=== PATIENT | female | born 1995 | race American Indian/Alaskan Native ===

== ENCOUNTER 2017-07-09 21:19 | Emergency (ER) | payer SELFPAY ==
[2017-07-09 22:05] VITALS: TEMP 98.6; O2SAT 98; BMI 25.0
[2017-07-09] MEDS ORDERED: Sodium Chloride 0.9% 1,000 ML IV STA (22:57)
--- NOTE | 2017-07-09 23:15 | ED PDOC ---
Arrival/HPI - General Historian: Patient, Parent <Mushtaq Cristobal - Last Filed: 07/10/17 00:30> <Corona Fernando - Last Filed: 07/10/17 01:40> - General Chief Complaint: Shortness Of Breath Time Seen by Provider: 07/09/17 22:33 - History of Present Illness Narrative History of Present Illness (Text): 07/09/17 22:59 22 year old female, moved to [place] from [facility] ([place]) in March 2017, with no past medical history presents with SOB and lethargy. The patient states for the past week she has been feeling very drained of any energy and experiencing SOB with exertion. Patient reports that she can not walk up two stairs before she she experiences tightness in her chest and becomes sob. She denies any pain associated with SOB. Patient's mother reports that the daughter has not been eating or drinking well over the past week. The mother has needed to force her to eat a meal once a day. Patient reports she has not had anything to drink in the past couple of days. She is not eating or drinking because she is not hungry , not because she is nauseous or vomiting. Patient reports that she urinates about 10 times per day, although she states this is normal for her. Denies f/c, n/v, d/c, cp, lightheadedness, dizziness, numbness or tingling. LMP: 05/18/2017 PMH: none PSH: none Family: Mother-HTN Social: denies tobacco, alcohol and illicit drug use Allergies: NKDA (Mushtaq Cristobal) Past Medical History - Provider Review Nursing Documentation Reviewed: Yes - Infectious Disease Hx of Infectious Diseases: None - Psychiatric Hx Substance Use: No - Anesthesia Hx Anesthesia: No <Mushtaq Cristobal - Last Filed: 07/10/17 00:30> Family/Social History - Physician Review Nursing Documentation Reviewed: Yes Family/Social History: No Known Family HX Smoking Status: Never Smoked Hx Alcohol Use: No Hx Substance Use: No <Mushtaq Cristobal - Last Filed: 07/10/17 00:30> Allergies/Home Meds <Mushtaq Cristobal - Last Filed: 07/10/17 00:30> <Corona Fernando - Last Filed: 07/10/17 01:40> Allergies/Adverse Reactions: Allergies No Known Allergies Allergy (Verified 07/09/17 22:05) Home Medications: Home Meds Medication Instructions Recorded Confirmed No Known Home Med 07/09/17 07/09/17 Review of Systems - Physician Review All systems were reviewed & negative as marked: Yes - Review of Systems Constitutional: Fatigue. absent: Fevers Eyes: absent: Vision Changes ENT: absent: Sore Throat, Rhinorrhea, Sinus Congestion Respiratory: SOB. absent: Cough, Sputum, Wheezing Cardiovascular: absent: Chest Pain, Palpitations, Calf Pain, Syncope Gastrointestinal: Appetite Changes (decreased). absent: Abdominal Pain, Constipation, Diarrhea, Nausea, Vomiting, Food Intolerance Genitourinary Female: Normal, Frequency (10x a day). absent: Dysuria, Hematuria , Vaginal Bleeding (LMP 7/15), Vaginal Discharge Musculoskeletal: Normal Skin: Normal Neurological: Headache. absent: Dizziness, Focal Weakness Endocrine: absent: Diaphoresis Psychiatric: Normal <Mushtaq Cristobal - Last Filed: 07/10/17 00:30> Physical Exam Vital Signs Reviewed: Yes Temperature: Afebrile Blood Pressure: Normal Pulse: Regular Respiratory Rate: Normal Appearance: Positive for: Well-Appearing, Non-Toxic, Comfortable Pain Distress: None Mental Status: Positive for: Alert and Oriented X 3 - Systems Exam Head: Present: Atraumatic, Normocephalic Pupils: Present: PERRL Extroacular Muscles: Present: EOMI Conjunctiva: Present: Normal Mouth: Present: Moist Mucous Membranes, Normal Lips, Normal Tounge, Normal Teeth. No: Dry Pharnyx: Present: Normal. No: ERYTHEMA, EXUDATE, TONSILS ENLARGED, Uvular Deviation, Muffled/Hoarse Voice Nose (External): Present: Atraumatic. No: Abrasion Nose (Internal): Present: Normal Inspection, No Active Bleeding, Moist. No: Engorged, Edematous Neck: Present: Normal Range of Motion. No: Meningeal Signs, MIDLINE TENDERNESS , Paraspinal Tenderness, JVD, Lymphadenopathy Respiratory/Chest: Present: Clear to Auscultation. No: Respiratory Distress, Accessory Muscle Use, Wheezes, Rales, Rhonchi, Tachypneic Cardiovascular: Present: Regular Rate and Rhythm, Normal S1, S2 Abdomen: Present: Tenderness, Normal Bowel Sounds. No: Distention, Peritoneal Signs, Guarding, McBurney's Point Tender, Rovsing's Sign Present Upper Extremity: Present: Normal Inspection, NORMAL PULSES. No: Cyanosis, Edema , Normal ROM Lower Extremity: Present: Normal Inspection, NORMAL PULSES. No: Edema, CALF TENDERNESS Neurological: Present: GCS=15, Motor Func Grossly Intact Skin: Present: Warm, Dry, Normal Color Lymphatic: No: Cervical Adenopathy Psychiatric: Present: Alert, Oriented x 3, Normal Insight, Normal Concentration <Mushtaq Cristobal - Last Filed: 07/10/17 00:30> Medical Decision Making <Mushtaq Cristobal - Last Filed: 07/10/17 00:30> <Corona Fernando - Last Filed: 07/10/17 01:40> ED Course and Treatment: 07/09/17 23:18 SOB with exertion - EKG - NSR @ 75bpm, normal axis, normal ekg - CXR - no acute disease, unremarkable - CBC - unremarkable - CMP - unremarkable - UA - unremarkable - Patient was able to ambulate with no SOB. - Patient given Tylenol for headache and 1L bolus of NS DISPO: Home with no prescriptions. Patient is instructed to follow up with her primary care physician, Dr. Varghese. Please return to emergency department for new/worsening symptoms. (Mushtaq Cristobal) Patient seen and evaluated with resident. Agree with HPI, clinical findings, plan and treatment. Patient is a 22 year old female who presents to the emergency department complaining of shortness of breath and lethargy. EKG, Labs, CXR and Urinalysis unremarkable. Will discharge patient and advised to present to emergency department for new/worsening complaints. (Corona Fernando) - Lab Interpretations Lab Results: 07/09/17 23:35 07/09/17 23:35 Lab Results 07/09/17 23:35: Sodium 137, Potassium 4.1, Chloride 102, Carbon Dioxide 25, Anion Gap 14, BUN 10, Creatinine 0.7, Est GFR ( Amer) > 60, Est GFR (Non- Af Amer) > 60, Random Glucose 100, Calcium 9.3, Total Bilirubin 0.4, AST 25, ALT 31, Alkaline Phosphatase 67, Total Protein 7.7, Albumin 4.3, Globulin 3.4, Albumin/Globulin Ratio 1.3 07/09/17 23:35: Urine Color Straw, Urine Appearance Clear, Urine pH 6.5, Ur Specific [place] 1.010, Urine Protein Negative, Urine Glucose (UA) Negative, Urine Ketones Negative, Urine Blood Negative, Urine Nitrate Negative, Urine Bilirubin Negative, Urine Urobilinogen 0.2, Ur Leukocyte Esterase Negative 07/09/17 23:35: WBC 5.2, RBC 4.29, Hgb 13.1, Hct 37.2, MCV 86.7, MCH 30.5, MCHC 35.2, RDW 12.3, Plt Count 191, MPV 10.6, Gran % 43.1 L, Lymph % (Auto) 46.5 H, [place] % (Auto) 8.1 H, Eos % (Auto) 2.1, Baso % (Auto) 0.2, Gran # 2.24, Lymph # 2.4, [place] # 0.4, Eos # 0.1, Baso # 0.01 - RAD Interpretation Radiology Orders: 07/09/17 22:56 CHEST PORTABLE [RAD] Stat - Medication Orders Current Medication Orders: Discontinued Medications Acetaminophen (Tylenol 325mg Tab) 650 mg PO STAT STA Stop: 07/10/17 00:16 Last Admin: 07/10/17 00:50 Dose: Sodium Chloride (Sodium Chloride 0.9%) 1,000 mls @ 999 mls/hr IV .Q1H1M STA Stop: 07/09/17 23:57 Last Admin: 07/09/17 23:59 Dose: 999 mls/hr - PA / SKIN INSTALLER / Resident Statement MARY has reviewed & agrees with the documentation as recorded. MARY has examined the patient and agrees with the treatment plan. <Corona Fernando - Last Filed: 07/10/17 01:40> Disposition/Present on Arrival - Present on Arrival Any Indicators Present on Arrival: No History of DVT/PE: No History of Uncontrolled Diabetes: No Urinary Catheter: No History of Decub. Ulcer: No History Surgical Site Infection Following: None - Disposition Have Diagnosis and Disposition been Completed?: Yes Disposition Time: 00:30 Patient Plan: Discharge <Mushtaq Cristobal - Last Filed: 07/10/17 00:30> <Corona Fernando - Last Filed: 07/10/17 01:40> - Disposition Diagnosis: Headache Disposition: HOME/ ROUTINE Condition: GOOD Discharge Instructions (ExitCare): Acute Headache (ED) Referrals: PCP,NO [Primary Care Provider] - Follow up with primary Forms: [employer] ([place])
[2017-07-09 23:58] LABS: BASO # 0.01 K/mm3 (0.0-2.0); BASO % 0.2 % (0.0-3.0); EOS # 0.1 (0.0-0.7); EOS % 2.1 % (1.5-5.0); GRAN # 2.24 (1.4-6.5); GRAN % 43.1 % (50.0-68.0); HEMATOCRIT 37.2 % (36.0-48.0); LYMPH # 2.4 (1.2-3.4); LYMPH % 46.5 % (22.0-35.0); MEAN CELL VOLUME 86.7 fl (80.0-105.0); MEAN CORPUSCULAR HEMOGLOBIN 30.5 pg (25.0-35.0); MEAN CORPUSCULAR HGB CONC 35.2 g/dl (31.0-37.0); MEAN PLATELET VOLUME 10.6 fl (7.0-11.0); MONO # 0.4 (0.1-0.6); MONO % 8.1 % (1.0-6.0); RED CELL DISTRIBUTION WIDTH 12.3 % (11.5-14.5); WHITE BLOOD COUNT 5.2 10^3/ul (4.5-11.0)
[2017-07-10 00:02] LABS: PH,URINE 6.5 (4.7-8.0); URINE BILIRUBIN NEGATIVE (NEGATIVE); URINE BLOOD NEGATIVE (NEGATIVE); URINE GLUCOSE (UA) NEGATIVE (NEGATIVE); URINE KETONE NEGATIVE (NEGATIVE); URINE LEUKOCYTE ESTERASE NEGATIVE Leu/uL (NEGATIVE); URINE PROTEIN NEGATIVE mg/dL (<30 mg/dL); URINE UROBILINOGEN 0.2 E.U./dL (<1 E.U./dL)
[2017-07-10 00:08] LABS: URINE APPEARANCE CLEAR (CLEAR); URINE COLOR STRAW (YELLOW)
[2017-07-10 00:09] LABS: ALB/GLOB RATIO 1.3 (1.1-1.8); ALKALINE PHOSPHATASE 67 U/L (38-126); ALT/SGPT 31 U/L (7-56); AST/SGOT 25 U/L (14-36); BILIRUBIN,TOTAL 0.4 mg/dL (0.2-1.3); BLOOD UREA NITROGEN 10 mg/dL (7-21); CALCIUM 9.3 mg/dL (8.4-10.5); CARBON DIOXIDE 25 mmol/L (21-33); CHLORIDE 102 mmol/L (95-110); GFR AFRICAN-AMERICAN > 60; GLUCOSE,RANDOM 100 mg/dL (70-110); POTASSIUM 4.1 mmol/L (3.6-5.0); SODIUM 137 mmol/L (132-148); TOTAL PROTEIN 7.7 g/dL (5.8-8.3)
[2017-07-10 00:52] VITALS: BP 112/72; PULSE 85; RESP 17
--- NOTE | 2017-07-10 09:24 | RAD ---
HISTORY: sob COMPARISON: No prior. FINDINGS: LUNGS: No active pulmonary disease. PLEURA: No significant pleural effusion identified, no pneumothorax apparent. CARDIOVASCULAR: Normal. OSSEOUS STRUCTURES: No significant abnormalities. VISUALIZED UPPER ABDOMEN: Normal. OTHER FINDINGS: None. IMPRESSION: No active disease.
--- NOTE | 2017-07-10 17:53 | CARD ---
APPROVED REPORT EKG Measurement Heart [id number] <Conclusion> Normal sinus rhythm Normal ECG
== END 2017-07-10 00:45 | disposition home or self-care (01) ==
LOC: ED 21:19
DX: R51 Headache (principal)
CPT/HCPCS: 71010; 80053; 81003; 82948; 85025; 93005; 96360; 99284; J7040

== ENCOUNTER 2018-06-07 00:45 | Emergency (ER) | payer SELFPAY ==
[2018-06-07 00:51] VITALS: BMI 30.9
[2018-06-07] MEDS ORDERED: Sodium Chloride 0.9% 1,000 ML IV STA (01:01)
[2018-06-07 01:03] VITALS: TEMP 98.3
--- NOTE | 2018-06-07 01:11 | ED PDOC ---
Arrival/HPI - General Chief Complaint: Abdominal Pain Time Seen by Provider: 06/07/18 00:48 Historian: Patient - History of Present Illness Narrative History of Present Illness (Text): 06/07/18 01:06 A 23 year old femal with no significant past medical history presents to the emergency department complaining of lower abdominal pain since 3 days ago. Patient reports her LNMP was 4 days ago and denies any fever, chills, chest pain , shortness of breath, nausea, vomiting, diarrhea,vaginal bleeding, back pain, neck pain, headache, dizziness, or any other complaints. No PMD Time/Duration: Other (3 days ) Symptom Onset: Gradual Symptom Course: Unchanged Context: Home Past Medical History - Provider Review Nursing Documentation Reviewed: Yes - Infectious Disease Hx of Infectious Diseases: None - Psychiatric Hx Psychophysiologic Disorder: No Hx Substance Use: No - Surgical History Hx Appendectomy: Yes - Anesthesia Hx Anesthesia: Yes Hx Anesthesia Reactions: No Family/Social History - Physician Review Nursing Documentation Reviewed: Yes Family/Social History: Unknown Family HX Smoking Status: Never Smoked Hx Alcohol Use: No Hx Substance Use: No Allergies/Home Meds Allergies/Adverse Reactions: Allergies No Known Allergies Allergy (Verified 06/07/18 00:51) Review of Systems - Physician Review All systems were reviewed & negative as marked: Yes - Review of Systems Constitutional: Normal. absent: Fevers, Night Sweats Eyes: Normal Respiratory: Normal. absent: SOB Cardiovascular: Normal. absent: Chest Pain Gastrointestinal: absent: Diarrhea, Nausea, Vomiting Genitourinary Female: Other (pain in lower abdomen). absent: Vaginal Bleeding Musculoskeletal: absent: Back Pain, Neck Pain Neurological: absent: Headache, Dizziness Physical Exam Vital Signs Reviewed: Yes Vital Signs Temp Pulse Resp BP Pulse Ox 06/07/18 01:02 98.3 F 06/07/18 00:54 85 16 105/48 L 98 Temperature: Afebrile Blood Pressure: Hypotensive Pulse: Regular Respiratory Rate: Normal Appearance: Positive for: Well-Appearing, Non-Toxic, Comfortable Pain Distress: None Mental Status: Positive for: Alert and Oriented X 3 - Systems Exam Head: Present: Atraumatic, Normocephalic Pupils: Present: PERRL Extroacular Muscles: Present: EOMI Conjunctiva: Present: Normal Mouth: Present: Moist Mucous Membranes Neck: Present: Normal Range of Motion Respiratory/Chest: Present: Clear to Auscultation, Good Air Exchange. No: Respiratory Distress, Accessory Muscle Use Cardiovascular: Present: Regular Rate and Rhythm, Normal S1, S2. No: Murmurs Abdomen: No: Tenderness, Distention, Peritoneal Signs Genitourinary/Pelvic Exam: Present: Adenexal Tenderness (super pubic and left pelvic adenexal). No: Vaginal Bleeding Back: Present: Normal Inspection Upper Extremity: Present: Normal Inspection. No: Cyanosis, Edema Lower Extremity: Present: Normal Inspection. No: Edema Neurological: Present: GCS=15, CN II-XII Intact, Speech Normal Skin: Present: Warm, Dry, Normal Color. No: Rashes Psychiatric: Present: Alert, Oriented x 3, Normal Insight, Normal Concentration Medical Decision Making ED Course and Treatment: 06/07/18 01:16 Impression: 23 year old female presenting to the Emergency department complaining of lower abdominal pain. r/o ovarian cyst colitis uti. labs imagign pendign Differential Diagnosis included but are not limited to: Plan: -- Labs -- Tylenol -- IV Fluids -- HCG, Qualitative Urine Stat -- Urinalysis -- Transvaginal Ultrasound -- Reassess and disposition Prior Visits: Notes and results from previous visits were reviewed. Progress Notes: 06/07/18 02:56 EXAM: US Pelvis, Transvaginal US Duplex Arterial/Venous of the Pelvis, Complete FINDINGS: Uterus/cervix: The endometrial stripe measures 11 mm. No myometrial mass. Right ovary: There is right ovarian simple cystic sonolucent mass measuring 2.1 x 2.0 x 2.4 cm with the smaller cystic area The beta-hCG is negative and is confirmed with the clinical staff taking care of the patient in the emergency room. The right ovary measures 3.9 x 2.6 x 3.1 cm. Duplex assessment demonstrates presence of color Doppler signal and spectral Doppler waveform in right ovary. No torsion. Left ovary: The left ovary measures 2.9 x 2.9 x 2.3 cm. Duplex assessment demonstrates presence of color Doppler signal and spectral Doppler waveform in left ovary. No torsion. Free fluid: Trace free pelvic fluid. Other findings: No IUP. CRITICAL RESULT: The study was personally discussed on the telephone with Rodrigue Mg on 06/07/20182:18 AM EDTThe results were understood and acknowledged. IMPRESSION: 1. There is right ovarian simple cystic sonolucent mass measuring 2.1 x 2.0 x 2.4 cm with the smaller cystic area . The beta-hCG is negative and is confirmed with the clinical staff taking care of the patient in the emergency room. 2. Trace free pelvic fluid. Dictated and Authenticated by: Guera Correa MD 06/07/18 04:01 EXAM: CT Abdomen and Pelvis With Intravenous Contrast FINDINGS: Lung bases: Unremarkable. No mass. No consolidation. ABDOMEN: Liver: The liver is unremarkable. Gallbladder and bile ducts: The gallbladder is unremarkable. No biliary ductal dilatation. Pancreas: The pancreas is unremarkable. Spleen: The spleen is unremarkable. Adrenals: The adrenal glands are unremarkable. Kidneys and ureters: Symmetric renal enhancement without hydronephrosis. Stomach and bowel: No evidence of bowel obstruction. No pericolonic inflammatory stranding. PELVIS: Appendix: Appendix is not seen but there is no pericecal inflammatory change to suggest appendicitis. Bladder: No focal wall thickening of the urinary bladder. Reproductive: 2 cm right adnexal cyst. Uterus is unremarkable. No suspicious adnexal lesion seen. ABDOMEN and PELVIS: Intraperitoneal space: Trace pelvic free fluid. No abscess or free air. Bones/joints: No acute osseous abnormality. Soft tissues: No soft tissue swelling. Vasculature: Unremarkable. No abdominal aortic aneurysm. Lymph nodes: No enlarged lymph nodes. IMPRESSION: No acute findings. Dictated and Authenticated by: Ruperto Nunn MD 06/07/18 04:08 pt reassessed pain improved. ct neg. us shows cyst. flow documents. labs neg. advise outpt fu. - Lab Interpretations Lab Results: 06/07/18 01:00 06/07/18 01:00 Lab Results 06/07/18 01:20: Urine HCG, Qual Negative 06/07/18 01:20: Urine Color Light yellow, Urine Appearance Clear, Urine pH 6.5, Ur Specific [place] <= 1.005, Urine Protein Negative, Urine Glucose (UA) Negative, Urine Ketones Negative, Urine Blood Negative, Urine Nitrate Negative, Urine Bilirubin Negative, Urine Urobilinogen 0.2, Ur Leukocyte Esterase Negative 06/07/18 01:00: Beta HCG, Quant < 2.39 06/07/18 01:00: Sodium 140, Potassium 4.1, Chloride 103, Carbon Dioxide 25, Anion Gap 16, BUN 11, Creatinine 0.7, Est GFR ( Amer) > 60, Est GFR (Non- Af Amer) > 60, Random Glucose 103, Calcium 9.0, Magnesium 1.9, Total Bilirubin 0.2, Direct Bilirubin 0.2, AST 15, ALT 18, Alkaline Phosphatase 76, Total Protein 7.7, Albumin 4.3, Globulin 3.4, Albumin/Globulin Ratio 1.2, Lipase 130 06/07/18 01:00: PT 11.5, INR 1.01, APTT 28.6 06/07/18 01:00: WBC 5.9, RBC 4.21, Hgb 12.6, Hct 35.7 L, MCV 84.8, MCH 29.9, MCHC 35.3, RDW 12.4, Plt Count 197, MPV 10.7, Gran % 42.1 L, Lymph % (Auto) 45.2 H, [place] % (Auto) 10.5 H, Eos % (Auto) 1.9, Baso % (Auto) 0.3, Gran # 2.49, Lymph # (Auto) 2.7, [place] # (Auto) 0.6, Eos # (Auto) 0.1, Baso # (Auto) 0.02 - RAD Interpretation Radiology Orders: 06/07/18 01:02 TRANSVAGINAL [US] Stat 06/07/18 02:27 ABD & PELVIS IV CONTRAST ONLY [CT] Stat - Medication Orders Current Medication Orders: Discontinued Medications Acetaminophen (Tylenol 325mg Tab) 975 mg PO STAT STA Stop: 06/07/18 01:03 Last Admin: 06/07/18 01:15 Dose: 975 mg Sodium Chloride (Sodium Chloride 0.9%) 1,000 mls @ 1,000 mls/hr IV .Q1H STA Stop: 06/07/18 02:00 Last Admin: 06/07/18 01:15 Dose: 1,000 mls/hr eMAR Start Stop Document 06/07/18 01:15 AD (Rec: 06/07/18 01:28 AD [id number]) Intravenous Solution Start Date 06/07/18 Start Time 01:27 - Scribe Statement The provider has reviewed the documentation as recorded by the Marcos Nunn All medical record entries made by the Scribe were at my direction and personally dictated by me. I have reviewed the chart and agree that the record accurately reflects my personal performance of the history, physical exam, medical decision making, and the department course for this patient. I have also personally directed, reviewed, and agree with the discharge instructions and disposition. Disposition/Present on Arrival - Present on Arrival Any Indicators Present on Arrival: No History of DVT/PE: No History of Uncontrolled Diabetes: No Urinary Catheter: No History of Decub. Ulcer: No History Surgical Site Infection Following: None - Disposition Have Diagnosis and Disposition been Completed?: Yes Diagnosis: Abdominal pain, Ovarian cyst Disposition: HOME/ ROUTINE Disposition Time: 01:00 Patient Problems: Current Active Problems Problem Status Onset Abdominal pain Acute Condition: STABLE Discharge Instructions (ExitCare): Ovarian Cysts, Acute Abdomen (Belly Pain), Adult (DC) Additional Instructions: please follow up with your doctor. return to er with worsening symptoms or concerns. please see obgyn. Prescriptions: Naproxen 500 mg PO BID PRN #14 tablet PRN Reason: Pain, Mild (1-3) Referrals: Oli Mcnamara DO [Staff Provider] - Follow up with primary Yobani Borges MD [Staff Provider] - Follow up with primary Forms: [facility] (French)
[2018-06-07 01:21] LABS: BASO # 0.02 K/mm3 (0.0-2.0); BASO % 0.3 % (0.0-3.0); EOS # 0.1 (0.0-0.7); EOS % 1.9 % (1.5-5.0); GRAN # 2.49 (1.4-6.5); GRAN % 42.1 % (50.0-68.0); HEMOGLOBIN 12.6 g/dL (12.0-16.0); LYMPH # 2.7 (1.2-3.4); LYMPH % 45.2 % (22.0-35.0); MEAN CELL VOLUME 84.8 fl (80.0-105.0); MEAN CORPUSCULAR HEMOGLOBIN 29.9 pg (25.0-35.0); MEAN CORPUSCULAR HGB CONC 35.3 g/dl (31.0-37.0); MEAN PLATELET VOLUME 10.7 fl (7.0-11.0); MONO # 0.6 (0.1-0.6); MONO % 10.5 % (1.0-6.0); RBC 4.21 10^6/uL (3.5-6.1); RED CELL DISTRIBUTION WIDTH 12.4 % (11.5-14.5); WHITE BLOOD COUNT 5.9 10^3/ul (4.5-11.0)
[2018-06-07 01:39] LABS: INR 1.01; PROTHROMBIN TIME 11.5 SECONDS (9.4-12.5)
[2018-06-07 01:41] LABS: PARTIAL THROMBOPLASTIN TIME 28.6 Seconds (25.1-36.5)
[2018-06-07 01:49] LABS: ALB/GLOB RATIO 1.2 (1.1-1.8); ALBUMIN 4.3 g/dL (3.0-4.8); ALT/SGPT 18 U/L (7-56); AST/SGOT 15 U/L (14-36); BILIRUBIN,DIRECT 0.2 mg/dL (0.0-0.4); BLOOD UREA NITROGEN 11 mg/dL (7-21); GFR AFRICAN-AMERICAN > 60; GFR NON-AFRICAN AMERICAN > 60; LIPASE 130 U/L (23-300)
[2018-06-07 01:57] LABS: PH,URINE 6.5 (4.7-8.0); URINE BILIRUBIN NEGATIVE (NEGATIVE); URINE BLOOD NEGATIVE (NEGATIVE); URINE GLUCOSE (UA) NEGATIVE (NEGATIVE); URINE LEUKOCYTE ESTERASE NEGATIVE Leu/uL (NEGATIVE); URINE PROTEIN NEGATIVE mg/dL (<30 mg/dL); URINE UROBILINOGEN 0.2 E.U./dL (<1 E.U./dL)
[2018-06-07 02:06] LABS: URINE APPEARANCE CLEAR (CLEAR); URINE COLOR LIGHT YELLOW (YELLOW)
[2018-06-07] MEDS ORDERED: Iohexol 350 MG/100 ML VIAL ONE (02:47)
[2018-06-07 04:53] VITALS: BP 110/52; PULSE 75; RESP 18; O2SAT 100
--- NOTE | 2018-06-07 09:10 | CT ---
Date of service: 06/07/2018 PROCEDURE: CT Abdomen and Pelvis with contrast HISTORY: diffuse abd pain COMPARISON: None. TECHNIQUE: Contrast dose: 100 cc of Omnipaque 300 Radiation dose: Total exam DLP = 569 mGy-cm. This CT exam was performed using one or more of the following dose reduction techniques: Automated exposure control, adjustment of the mA and/or kV according to patient size, and/or use of iterative reconstruction technique. FINDINGS: LOWER THORAX: Unremarkable. LIVER: Unremarkable. No gross lesion or ductal dilatation. GALLBLADDER AND BILE DUCTS: Unremarkable. PANCREAS: Unremarkable. No gross lesion or ductal dilatation. SPLEEN: Unremarkable. ADRENALS: Unremarkable. No mass. KIDNEYS AND URETERS: Unremarkable. No hydronephrosis. No solid mass. VASCULATURE: Unremarkable. No aortic aneurysm. BOWEL: Unremarkable. No obstruction. No gross mural thickening. APPENDIX: Normal appendix. PERITONEUM: Unremarkable. No free fluid. No free air. LYMPH NODES: Unremarkable. No enlarged lymph nodes. BLADDER: Unremarkable. REPRODUCTIVE: Right-sided ovarian cyst BONES: No acute fracture. OTHER FINDINGS: The report concurs with the preliminary [facility] report IMPRESSION: No acute intra-abdominal findings
--- NOTE | 2018-06-07 14:31 | US ---
Date of service: 06/07/2018 HISTORY: pelvic pain COMPARISON: None available. TECHNIQUE: Transvaginal FINDINGS: UTERUS: Measures 7.9 x 4.3 x 5.4 cm. Normal in size and appearance. No fibroid or other mass lesion seen. ENDOMETRIUM: Measures 11 mm in diameter. Unremarkable. CERVIX: No cervical abnormality identified. RIGHT OVARY: There is a simple cyst in the right ovary measuring 2.1 x 2.0 x 2.4 cm. There is a smaller cyst within the cyst. This has the appearance similar to a yolk sac. However the beta-hCG E is reported as negative which rules out ectopic. The right ovary measures 3.9 x 2.6 x 3.1 cm LEFT OVARY: Left ovary measures 2.9 x 2.9 x 2.3 cm FREE FLUID: Trace amount of free fluid OTHER FINDINGS: The study was initially interpreted by the [facility] radiologists in the results were discussed with Dr. Mg at 2:18 a.m. Eastern time IMPRESSION: Complex cyst in the right ovary. No evidence of intrauterine . Beta-hCG is reported as negative which rules out ectopic
== END 2018-06-07 04:00 | disposition home or self-care (01) ==
LOC: ED 00:45
DX: N83.201 Unspecified ovarian cyst, right side (principal); R10.30 Lower abdominal pain, unspecified
CPT/HCPCS: 74177; 76830; 80053; 81003; 82248; 83690; 83735; 84702; 84703; 85025; 85610; 85730; 99283; J7030; Q9967

== ENCOUNTER 2019-03-03 18:55 | Emergency (ER) | payer SELFPAY ==
[2019-03-03 18:57] VITALS: BMI 30.9
[2019-03-03 19:29] VITALS: RESP 18; TEMP 97.8
--- NOTE | 2019-03-03 19:35 | ED PDOC ---
Arrival/HPI <Corona Fernando - Last Filed: 03/04/19 23:18> - General Historian: Patient - History of Present Illness Narrative History of Present Illness (Text): 03/03/19 21:29 24 y/o female with PMH of ovarian cysts presents to the ED c/o abdominal pain x 2 weeks. Associated intermittent lightheadedness, headache, constipation. Also has been experiencing palpitations intermittently that she describes as a "fast heart beat". Yesterday, pt had a nose bleed from the left nare that stopped after about 5 minutes without intervention. Pt has a history of nosebleeds as a child that resolved after a polyp removal surgery [place]. Pt does not have ENT followup here in the [place]. No epistaxis currently. Admits to not drinking much water throughout the day. Last BM yesterday afternoon, small amount of hard stool. Tolerating PO per baseline. Denies fever, chills, cough, chest pain, SOB, syncope, diarrhea, vision changes, neck pain/stiffness, nausea, vomiting, numbness, weakness, paresthesias, back pain, or any other associated symptoms. <Sarika Trivedi - Last Filed: 03/05/19 16:08> - General Chief Complaint: Abdominal Pain Time Seen by Provider: 03/03/19 18:58 Past Medical History - Provider Review Nursing Documentation Reviewed: Yes - Infectious Disease Hx of Infectious Diseases: None - Psychiatric Hx Psychophysiologic Disorder: No Hx Substance Use: No - Surgical History Hx Appendectomy: Yes - Anesthesia Hx Anesthesia: Yes Hx Anesthesia Reactions: No Hx Malignant Hyperthermia: No <Sarika Trivedi - Last Filed: 03/05/19 16:08> Family/Social History - Physician Review Nursing Documentation Reviewed: Yes Family/Social History: No Known Family HX Smoking Status: Never Smoked Hx Alcohol Use: No Hx Substance Use: No <Sarika Trivedi - Last Filed: 03/05/19 16:08> Allergies/Home Meds <Corona Fernando - Last Filed: 03/04/19 23:18> <Sarika Trivedi - Last Filed: 03/05/19 16:08> Allergies/Adverse Reactions: Allergies No Known Allergies Allergy (Verified 06/07/18 00:51) Review of Systems - Physician Review All systems were reviewed & negative as marked: Yes - Review of Systems Constitutional: Normal. absent: Fevers Eyes: Normal. absent: Vision Changes, Eye Pain ENT: Epistaxis. absent: Sore Throat, Sinus Congestion Respiratory: Normal. absent: SOB, Cough Cardiovascular: Normal. absent: Chest Pain, Palpitations, Syncope Gastrointestinal: Abdominal Pain. absent: Nausea, Vomiting Genitourinary Female: Normal. absent: Dysuria, Frequency Musculoskeletal: Normal. absent: Back Pain, Neck Pain Skin: Normal. absent: Rash Neurological: Headache, Dizziness <Sarika Trivedi - Last Filed: 03/05/19 16:08> Physical Exam Vital Signs Temp Pulse Resp BP Pulse Ox 03/03/19 18:57 97.8 F 81 18 105/76 98 <Corona Fernando - Last Filed: 03/04/19 23:18> Vital Signs Reviewed: Yes Vital Signs Temp Pulse Resp BP Pulse Ox 03/03/19 18:57 97.8 F 81 18 105/76 98 Temperature: Afebrile Blood Pressure: Normal Pulse: Regular Respiratory Rate: Normal Appearance: Positive for: Well-Appearing, Non-Toxic, Comfortable Pain Distress: None Mental Status: Positive for: Alert and Oriented X 3 - Systems Exam Head: Present: Atraumatic, Normocephalic Pupils: Present: PERRL Extroacular Muscles: Present: EOMI Conjunctiva: Present: Normal Ears: Present: Normal, NORMAL TM, Normal Canal Mouth: Present: Moist Mucous Membranes Pharnyx: Present: Normal. No: ERYTHEMA, EXUDATE, TONSILS ENLARGED Nose (External): Present: Atraumatic Nose (Internal): Present: Normal Inspection, No Active Bleeding, Moist Neck: Present: Normal Range of Motion. No: Meningeal Signs Respiratory/Chest: Present: Clear to Auscultation, Good Air Exchange. No: Respiratory Distress, Accessory Muscle Use Cardiovascular: Present: Regular Rate and Rhythm, Normal S1, S2, Peripheal Pulses Present. No: Other (no focal RLQ tenderness) Abdomen: Present: Tenderness (generalized, worst periumbilical ), Normal Bowel Sounds. No: Distention, Peritoneal Signs, Rebound, Guarding Back: Present: Normal Inspection. No: CVA Tenderness Upper Extremity: Present: Normal Inspection, Normal ROM, NORMAL PULSES, Neurovascularly Intact, Capillary Refill < 2s. No: Cyanosis, Edema, Temperature Abnormalties Lower Extremity: Present: Normal Inspection, NORMAL PULSES, Normal ROM, Neurovascularly Intact, Capillary Refill < 2 s. No: Edema, Temperature Abnormalties Neurological: Present: GCS=15, CN II-XII Intact, Speech Normal, Motor Func Grossly Intact, Normal Sensory Function, Gait Normal Skin: Present: Warm, Dry, Normal Color. No: Rashes Psychiatric: Present: Alert, Oriented x 3, Normal Insight, Normal Concentration, Normal Affect, Normal Mood <Sarika Trivedi - Last Filed: 03/05/19 16:08> Medical Decision Making - Lab Interpretations Lab Results: PT 11.6 SECONDS (9.4-12.5) 03/03/19 19:45 INR 1.05 03/03/19 19:45 APTT 29.1 Seconds (26.9-38.3) 03/03/19 19:45 Troponin I < 0.01 ng/mL 03/03/19 19:45 Total Bilirubin 0.2 mg/dL (0.2-1.3) 03/03/19 19:45 AST 21 U/L (14-36) 03/03/19 19:45 ALT 17 U/L (7-56) 03/03/19 19:45 Alkaline Phosphatase 74 U/L (38-126) 03/03/19 19:45 Total Protein 7.4 g/dL (5.8-8.3) 03/03/19 19:45 Albumin 4.1 g/dL (3.0-4.8) 03/03/19 19:45 Globulin 3.3 gm/dL 03/03/19 19:45 Albumin/Globulin Ratio 1.2 (1.1-1.8) 03/03/19 19:45 Lipase 113 U/L (23-300) 03/03/19 19:45 Urine Color Yellow (YELLOW) 03/03/19 19:45 Urine Appearance Clear (CLEAR) 03/03/19 19:45 Urine pH 7.5 (4.7-8.0) 03/03/19 19:45 Ur Specific [place] 1.015 (1.005-1.035) 03/03/19 19:45 Urine Protein Negative mg/dL (<30 mg/dL) 03/03/19 19:45 Urine Glucose (UA) Negative mg/dL (NEGATIVE) 03/03/19 19:45 Urine Ketones Negative mg/dL (NEGATIVE) 03/03/19 19:45 Urine Blood Negative (NEGATIVE) 03/03/19 19:45 Urine Nitrate Negative (NEGATIVE) 03/03/19 19:45 Urine Bilirubin Negative (NEGATIVE) 03/03/19 19:45 Urine Urobilinogen 0.2 E.U./dL (<1 E.U./dL) 03/03/19 19:45 Ur Leukocyte Esterase Negative Arnol/uL (NEGATIVE) 03/03/19 19:45 - RAD Interpretation Radiology Orders: 03/03/19 19:36 ABD & PELVIS IV CONTRAST ONLY [CT] Stat 03/03/19 19:41 HEAD W/O CONTRAST [CT] Stat - Medication Orders Current Medication Orders: Discontinued Medications Acetaminophen (Tylenol 325mg Tab) 650 mg PO STAT STA Stop: 03/03/19 20:32 Last Admin: 03/03/19 20:57 Dose: 650 mg MAR Pain/Vitals Document 03/03/19 20:57 RG (Rec: 03/03/19 20:57 RG [id number]) Location Left, Right or Bilateral Left Upper or Lower Lower Pain Location Body Site Abdomen Pain Behavior Rubbing Site Sodium Chloride (Sodium Chloride 0.9%) 1,000 mls @ 999 mls/hr IV .Q1H1M STA Stop: 03/03/19 20:39 Last Admin: 03/03/19 19:50 Dose: 999 mls/hr eMAR Start Stop Document 03/03/19 19:50 RG (Rec: 03/03/19 19:50 RG [id number]) Intravenous Solution Start Date 03/03/19 Start Time 19:50 <Corona Fernando - Last Filed: 03/04/19 23:18> ED Course and Treatment: Initial Plan: * CBC, CMP * Coags * Troponin * Mg, Phos * Thyroid Studies * Lipase * UA * EKG * CXR * CT Head * CT Abd/Pelvis * Orthostatics * IVF * Tylenol On initial exam, patient is very well appearing in no acute distress. No focal neurological deficits or ataxia. No respiratory distress. No tachycardia. No epistaxis. Abdomen soft, mild generalized tenderness. Bloodwork and urine reviewed, unremarkable CXR shows no active disease CT head negative CT Abd/Pelvis shows mesenteric adenitis. Advised supportive care. EKG shows normal rate and rhythm, no ischemic changes or heart block. On reevaluation, patient continues to be well appearing. Resting comfortably in stretcher with stable vital signs. Reports complete resolution of symptoms with medications. Comfortable with discharge home. Advised PMD, cardiology, ENT, and GI followup. Diagnostic testing results and plan of care discussed with patient. Strict instructions given regarding prescription use, importance of followup, and signs/symptoms to return to ER including chest pain, SOB, intractable vomiting, syncope, or any other new/worsening symptoms. Pt verbalized understanding of discussion. Patient is A&Ox3, ambulating with steady gait, with vital signs stable for discharge. - Lab Interpretations Lab Results: 03/03/19 19:45 03/03/19 19:45 Lab Results 03/03/19 19:45: Free T4 1.06, TSH 3rd Generation 1.27 03/03/19 19:45: Sodium 139, Potassium 4.1, Chloride 103, Carbon Dioxide 28, Anion Gap 12, BUN 11, Creatinine 0.6 L, Est GFR ( Amer) > 60, Est GFR (Non-Af Amer) > 60, Random Glucose 91, Calcium 9.0, Magnesium 2.0, Total Bilirubin 0.2, AST 21, ALT 17, Alkaline Phosphatase 74, Troponin I < 0.01, Total Protein 7.4, Albumin 4.1, Globulin 3.3, Albumin/Globulin Ratio 1.2, Lipase 113 03/03/19 19:45: Urine Color Yellow, Urine Appearance Clear, Urine pH 7.5, Ur Specific [place] 1.015, Urine Protein Negative, Urine Glucose (UA) Negative, Urine Ketones Negative, Urine Blood Negative, Urine Nitrate Negative, Urine Bilirubin Negative, Urine Urobilinogen 0.2, Ur Leukocyte Esterase Negative 03/03/19 19:45: PT 11.6, INR 1.05, APTT 29.1 03/03/19 19:45: WBC 5.1, RBC 4.25, Hgb 12.7, Hct 36.7, MCV 86.4, MCH 29.9, MCHC 34.6, RDW 12.1, Plt Count 223, MPV 10.4, Neut % (Auto) 37.5 L, Lymph % (Auto) 49.2 H, [place] % (Auto) 10.5 H, Eos % (Auto) 2.4, Baso % (Auto) 0.4, Lymph # (Auto) 2.5, [place] # (Auto) 0.5, Eos # (Auto) 0.1, Baso # (Auto) 0.02, Absolute Neuts (auto) 1.90 03/03/19 19:29: POC Glucose (mg/dL) 116 H I have reviewed the lab results: Yes Interpretation: All labs normal - RAD Interpretation Narrative RAD Interpretations (Text): 03/03/19 22:[address] without contrast: FINDINGS: BRAIN: No acute intraparenchymal hemorrhage. No mass lesion. No CT evidence for acute territorial infarct. No midline shift or extra-axial collections. VENTRICLES: No hydrocephalus. ORBITS: The orbits are unremarkable. SINUSES AND MASTOIDS: The paranasal sinuses and mastoid air cells are clear. BONES: No fracture. SOFT TISSUES: Unremarkable. IMPRESSION: No acute intracranial abnormality. Electronically signed on Mar 03, 2019 10:02:04 PM EDT by: Oli Pickering M.D., M.B.A., Certified By [employer] Trained MRI and CT Specialist CT Abd/Pelvis with IV contrast: FINDINGS: LUNG BASES: The lung bases appear clear. No pleural effusions are seen. LIVER: Unremarkable. GALLBLADDER AND BILE DUCTS: The gallbladder appears within normal limits. No radioopaque gallstones are seen. No biliary ductal dilatation is evident. PANCREAS: Unremarkable. SPLEEN: Unremarkable. ADRENAL GLANDS: Unremarkable. KIDNEYS, URETERS, AND BLADDER: The kidneys appear within normal limits. There is no hydronephrosis or hydroureter. No urinary calculi are seen. The urinary bladder appeared normal in size and configuration. STOMACH AND BOWEL: Unremarkable appearance of the stomach. No evidence of bowel obstruction. There is mucosal wall thickening and fluid in the lumen seen involving the duodenum and small intestinal tract thought compatible with diffuse enteritis. Infectious or inflammatory etiologies are thought most likely. No evidence suggesting colitis. APPENDIX: No evidence of acute appendicitis on CT examination. PERITONEUM: No free fluid. No free air. LYMPH NODES: Multiple bilateral inguinal lymph nodes are present; at least one of which is e nlarged bilaterally. Additionally, multiple mesenteric lymph nodes are seen in the central root of the mesentery. REPRODUCTIVE: Unremarkable as visualized. VASCULATURE: No evidence of abdominal aortic aneurysm. BONES: No aggressive appearing osseous lesion. No acute osseous pathology evident. IMPRESSION: 1. Evidence of diffuse enteritis. 2. Multiple lymph nodes in the central root of the mesentery compatible with mesenteric adenitis. Several bilateral inguinal lymph nodes are noted; one of which is enlarged bilaterally. Electronically signed on Mar 03, 2019 10:03:46 PM EDT by: Oli Pickering M.D., M.B.A., Certified By [employer] Trained MRI and CT Specialist Automation/Controls Manager: Radiologist - EKG Interpretation EKG Interpretation (Text): 03/03/19 22:13 Rate 75; NSR; Normal Intervals; Normal axis; No STEMI or other signs of acute ischemia Interpreted by ED Physician: Yes Type: 12 lead EKG <Sarika Trivedi - Last Filed: 03/05/19 16:08> - PA / DRAIN TECHNICIAN / Resident Statement MD/ has reviewed & agrees with the documentation as recorded. <Corona Fernando - Last Filed: 03/04/19 23:18> Disposition/Present on Arrival <Corona Fernando - Last Filed: 03/04/19 23:18> - Present on Arrival Any Indicators Present on Arrival: No History of DVT/PE: No History of Uncontrolled Diabetes: No Urinary Catheter: No History of Decub. Ulcer: No History Surgical Site Infection Following: None - Disposition Have Diagnosis and Disposition been Completed?: Yes Disposition Time: 22:10 Patient Plan: Discharge <Sarika Trivedi - Last Filed: 03/05/19 16:08> - Disposition Diagnosis: Palpitations, Enteritis, Headache Disposition: HOME/ ROUTINE Condition: IMPROVED Discharge Instructions (ExitCare): Palpitations, Acute Abdomen (Belly Pain), Adult (DC), Viral Gastroenteritis, Adult (DC), Nosebleeds (DC) Additional Instructions: Increase fluids Rest, no strenuous activity Pepcid every 12 hours as needed for indigestion Bentyl every 12 hours as needed for abdominal cramping Miralax daily as needed for constipation, take as directed Followup with ENT within 2 days Followup with GI within 2 days Followup with cardiology within 2 days Followup with primary within 2 days Return to ER with any new/worsening symptoms Prescriptions: Dicyclomine [Dicyclomine HCl] 10 mg PO Q12H PRN #10 cap PRN Reason: abdominal cramping Famotidine [Pepcid] 20 mg PO Q12H PRN #14 tab PRN Reason: Indigestion Polyethylene Glycol 3350 [Miralax] 17 gm PO DAILY PRN #3 packet PRN Reason: Constipation Referrals: [facility] [place]] - Follow up with primary Yobani Borges MD [Staff Provider] - Follow up with primary Ayan Horton DO [Staff Provider] - Follow up with primary Olesya Lopez MD [Staff Provider] - Follow up with primary Brooklyn Gómez MD [Medical Doctor] - Follow up with primary Forms: [employer] (Amharic), WORK NOTE
[2019-03-03] MEDS ORDERED: Sodium Chloride 0.9% 1,000 ML IV STA (19:39)
[2019-03-03 19:53] LABS: BASO # 0.02 K/mm3 (0.0-2.0); BASO % 0.4 % (0.0-3.0); EOS # 0.1 (0.0-0.7); EOS % 2.4 % (1.5-5.0); HEMOGLOBIN 12.7 g/dL (12.0-16.0); LYMPH # 2.5 (1.2-3.4); LYMPH % 49.2 % (22.0-35.0); MEAN CELL VOLUME 86.4 fl (80.0-105.0); MEAN CORPUSCULAR HEMOGLOBIN 29.9 pg (25.0-35.0); MEAN CORPUSCULAR HGB CONC 34.6 g/dl (31.0-37.0); MEAN PLATELET VOLUME 10.4 fl (7.0-11.0); MONO # 0.5 (0.1-0.6); MONO % 10.5 % (1.0-6.0); PH,URINE 7.5 (4.7-8.0); RBC 4.25 10^6/uL (3.5-6.1); RED CELL DISTRIBUTION WIDTH 12.1 % (11.5-14.5); URINE BILIRUBIN NEGATIVE (NEGATIVE); URINE BLOOD NEGATIVE (NEGATIVE); URINE GLUCOSE (UA) NEGATIVE (NEGATIVE); URINE LEUKOCYTE ESTERASE NEGATIVE Leu/uL (NEGATIVE); URINE PROTEIN NEGATIVE mg/dL (<30 mg/dL); URINE UROBILINOGEN 0.2 E.U./dL (<1 E.U./dL); WHITE BLOOD COUNT 5.1 10^3/uL (4.5-11.0)
[2019-03-03 19:59] LABS: INR 1.05; PARTIAL THROMBOPLASTIN TIME 29.1 Seconds (26.9-38.3); PROTHROMBIN TIME 11.6 SECONDS (9.4-12.5)
[2019-03-03 20:00] LABS: URINE APPEARANCE CLEAR (CLEAR); URINE COLOR YELLOW (YELLOW)
[2019-03-03 20:01] LABS: ALB/GLOB RATIO 1.2 (1.1-1.8); ALBUMIN 4.1 g/dL (3.0-4.8); ALT/SGPT 17 U/L (7-56); AST/SGOT 21 U/L (14-36); BLOOD UREA NITROGEN 11 mg/dL (7-21); GFR NON-AFRICAN AMERICAN > 60; LIPASE 113 U/L (23-300)
[2019-03-03 20:12] LABS: TROPONIN I < 0.01 ng/mL
[2019-03-03 20:17] LABS: FREE T4 1.06 ng/dL (0.78-2.19)
[2019-03-03] MEDS ORDERED: Iohexol 350 MG/100 ML VIAL ONE (20:46)
[2019-03-03 23:19] VITALS: BP 104/60; PULSE 73; O2SAT 100
--- NOTE | 2019-03-04 09:30 | CT ---
Date of service: 03/03/2019 PROCEDURE: CT HEAD WITHOUT CONTRAST. HISTORY: dizziness, headache COMPARISON: None available. TECHNIQUE: Axial computed tomography images were obtained through the head/brain without intravenous contrast. Radiation dose: Total exam DLP = 931.76 mGy-cm. This CT exam was performed using one or more of the following dose reduction techniques: Automated exposure control, adjustment of the mA and/or kV according to patient size, and/or use of iterative reconstruction technique. FINDINGS: HEMORRHAGE: No intracranial hemorrhage. BRAIN: No mass effect or edema. No atrophy or chronic microvascular ischemic changes. VENTRICLES: Unremarkable. No hydrocephalus. CALVARIUM: Unremarkable. PARANASAL SINUSES: Unremarkable as visualized. No significant inflammatory changes. MASTOID AIR CELLS: Unremarkable as visualized. No inflammatory changes. OTHER FINDINGS: The report concurs with the preliminary [facility] report IMPRESSION: No acute intracranial findings
--- NOTE | 2019-03-04 10:16 | RAD ---
Date of service: 03/03/2019 HISTORY: dizziness COMPARISON: 07/09/2017 TECHNIQUE: 1 view obtained. FINDINGS: LUNGS: No active pulmonary disease. PLEURA: No significant pleural effusion identified, no pneumothorax apparent. CARDIOVASCULAR: No aortic atherosclerotic calcification present. Normal cardiac size. No pulmonary vascular congestion. OSSEOUS STRUCTURES: No significant abnormalities. VISUALIZED UPPER ABDOMEN: Normal. OTHER FINDINGS: None. IMPRESSION: No active disease.
--- NOTE | 2019-03-04 10:37 | CT ---
Date of service: 03/03/2019 PROCEDURE: CT Abdomen and Pelvis with contrast HISTORY: generalized abdominal pain, worst LLQ COMPARISON: None. TECHNIQUE: Contrast dose: 100 cc of Omni 350 Radiation dose: Total exam DLP = 639.2 mGy-cm. This CT exam was performed using one or more of the following dose reduction techniques: Automated exposure control, adjustment of the mA and/or kV according to patient size, and/or use of iterative reconstruction technique. FINDINGS: LOWER THORAX: Unremarkable. LIVER: Unremarkable. No gross lesion or ductal dilatation. GALLBLADDER AND BILE DUCTS: Unremarkable. PANCREAS: Unremarkable. No gross lesion or ductal dilatation. SPLEEN: Unremarkable. ADRENALS: Unremarkable. No mass. KIDNEYS AND URETERS: Unremarkable. No hydronephrosis. No solid mass. VASCULATURE: Unremarkable. No aortic aneurysm. No aortic atherosclerotic calcification or mural plaque present. BOWEL: Unremarkable. No obstruction. No gross mural thickening. APPENDIX: Normal appendix. PERITONEUM: Unremarkable. No free fluid. No free air. LYMPH NODES: Mildly enlarged mesenteric lymph nodes are seen centrally and in the right lower quadrant. This could represent mesenteric adenitis BLADDER: Unremarkable. REPRODUCTIVE: Unremarkable. BONES: No acute fracture. OTHER FINDINGS: The report concurs with the preliminary [facility] report IMPRESSION: Mildly enlarged mesenteric lymph nodes are seen centrally and in the right lower quadrant. This could represent mesenteric adenitis
--- NOTE | 2019-03-04 10:52 | CARD ---
APPROVED REPORT Date of service: 03/03/2019 EKG Measurement Heart [id number] <Conclusion> Normal sinus rhythm Normal ECG
== END 2019-03-03 22:30 | disposition home or self-care (01) ==
LOC: ED 18:55
DX: R00.2 Palpitations (principal); R51 Headache; K52.9 Noninfective gastroenteritis and colitis, unspecified
CPT/HCPCS: 70450; 71045; 74177; 80053; 81003; 81025; 82948; 83690; 83735; 84439; 84443; 84484; 85025; 85610; 85730; 93005; 99285; J7030; Q9967